=== PATIENT | female | born 1965 | race Caucasian/White ===

== ENCOUNTER 2019-10-02 15:17 | Outpatient (REF) | payer BC, SELFPAY ==
[2019-10-08 09:55] LABS: COVID-19 RT-PCR Result Not Detected (NotDetected)
== END 2019-10-02 15:37 ==
LOC: NCHCN 15:17
PROVIDERS: PCP Nurse Practitioner Family; Visit Provider Physician Assistant
DX: Z20.828 Contact with and (suspected) exposure to other viral communicable diseases (principal); R05 Cough
CPT/HCPCS: U0003

== ENCOUNTER 2020-05-14 19:59 | Outpatient (REF) | payer BC, SELFPAY ==
[2020-05-14 19:38] LABS: Anion Gap 5.5 mmol/L (3-11); BUN 18 mg/dL (7-18); CO2 30.5 mmol/L (21.0-32.0); CREATININE 0.87 mg/dL (0.55-1.02); Calcium 8.8 mg/dL (8.5-10.1); Calculated LDL 163 mg/dL (<100); Chloride 104 mmol/L (98-107); Cholesterol 231 mg/dL (<200); Glucose 99 mg/dL (74-106); HDL Cholesterol 49 mg/dL (40-60); Potassium 4.1 mmol/L (3.5-5.1); Sodium 140 mmol/L (136-145); Triglyceride 96 mg/dL (<150)
== END 2020-05-14 20:19 ==
LOC: NCHCN 19:59
PROVIDERS: PCP Nurse Practitioner Family; Visit Provider Physician Assistant
DX: E78.5 Hyperlipidemia, unspecified (principal)
CPT/HCPCS: 80048; 80061

== ENCOUNTER 2021-05-14 15:08 | Outpatient (REF) | payer BC, SELFPAY ==
[2021-05-14 15:23] LABS: HCT 43.5 % (36.0-46.0); HGB 14.2 g/dL (11.2-15.7); MCH 28.3 pg (27.0-33.0); MCHC 32.6 % (32.0-36.0); MCV 86.7 fL (80-95); MPV 11.5 fL (8.0-11.0); Platelet Count 161 10^3/uL (130-400); RBC 5.02 10^6/uL (3.93-5.22); RDW-SD 40.8 fL; WBC 6.04 10^3/uL (4.4-10.8)
[2021-05-14 16:26] LABS: Anion Gap 7.4 mmol/L (3-11); BUN 19 mg/dL (7-18); CO2 28.6 mmol/L (21.0-32.0); CREATININE 0.8 mg/dL (0.55-1.02); Calculated LDL 150 mg/dL (<100); Chloride 107 mmol/L (98-107); Cholesterol 221 mg/dL (<200); Glucose 108 mg/dL (74-106); HDL Cholesterol 50 mg/dL (40-60); Potassium 4.3 mmol/L (3.5-5.1); Sodium 143 mmol/L (136-145); Triglyceride 106 mg/dL (<150); Vitamin B12 483 pg/mL (193-986)
[2021-05-14 16:51] LABS: FREE T4 0.93 ng/dL (0.76-1.46)
== END 2021-05-14 15:09 | disposition home or self-care (01) ==
LOC: NCHCN 15:08
PROVIDERS: PCP Nurse Practitioner Family; Visit Provider Physician Assistant
DX: G60.9 Hereditary and idiopathic neuropathy, unspecified (principal); E78.5 Hyperlipidemia, unspecified
CPT/HCPCS: 80048; 80061; 85027; 82607; 84439

== ENCOUNTER 2022-04-18 14:47 | Emergency (ER) | payer BC, SELFPAY ==
[2022-04-18 15:04] VITALS: BP 132/69; PULSE 86; RESP 18; TEMP 36.7; O2SAT 99
--- NOTE | 2022-04-18 16:30 | DI.RAD_ITS ---
Exam(s) XR KNEE RT 4V+ EXAM: XR KNEE RT 4V+ CLINICAL HISTORY: twist injury, prior surgery. TECHNIQUE: 2D digital imaging was performed. COMPARISON: No exams were available for comparison FINDINGS: Four views: No evidence of acute fracture or joint effusion. There are significant tricompartmental osteoarthrit ic degenerative changes evident. Bone density normal. No osseous lesions. IMPRESSION: Tricompartmental degenerative changes. No fractures nor obvious joint effusion. DATA REPOSITORY: RADIATION DOSE DELIVERED:
--- NOTE | 2022-04-18 16:48 | W.ED.GENAD ---
Discharge Plan Disposition Patient Disposition: HOME Condition: Stable Discharge Details Clinical Impression: Knee pain, right Primary Care Provider: Dylon Chanel ED Provider: Lukasz Mckinley Home Meds and New Rx's Prescriptions: Continued ascorbic acid (vitamin C) 500 mg tablet 500 mg PO DAILY famotidine [Pepcid] 20 mg tablet 20 mg PO DAILY multivitamin Tablet 1 tab PO DAILY Probiotic Acidophilus 1.5 mg (250 million cell) capsule 100 mmu cells PO DAILY cholecalciferol (vitamin D3) 75 mcg (3,000 unit) tablet 75 mcg PO DAILY acetaminophen [Acetaminophen Extra Strength] 500 mg Tablet 1,000 mg PO QID PRN Discharge Instructions Instructions: Knee Pain (ED) Additional Instructions: X-ray is unremarkable. Rest, elevate, cool compresses every 2 hours for 20 minutes. Wear Deandre wrap and use crutches as needed, advance activity as tolerated. [id number] Tylenol as directed. Please watch for new or worsening symptoms and return to the ER for any concerns. Please contact the [facility] tomorrow to discuss your new knee injury and set up outpatient reevaluation. Medical Decision Making This is a 56-year-old female who reports chronic knee arthritis, [id number], history of meniscus repair, lateral release, presents after stepping awkwardly twisting her right knee today but no fall to the ground. Denies other injury. Plan is to obtain x-ray and reassess. X-ray unremarkable. Discussed x-ray with patient. Knee is stable, I do not believe that a knee immobilizer or hinged brace is necessary. Patient already has crutches. We will apply Deandre wrap. Patient declines any additional analgesia other than Tylenol. She is followed by the [facility] for her chronic knee issues and will call them tomorrow. Standard discharge and return precautions were provided. Patient understands, is agreeable to this plan, and has no additional questions or concerns upon discharge. This documentation was generated using Yapation system, please disregard any oddities of phrase or misspellings. Medical Records Medical records reviewed: Yes I reviewed the patient's medical records. Imaging Data Radiologic Study: Attestation: I personally reviewed and interpreted this imaging study as follows: Imaging: X-Ray Radiologist's impression: PROCEDURE INFORMATION: Exam: XR Right Knee Exam date and time: 04/18/2022 4:53 PM Age: 56 years old Clinical indication: Other: Twist injury; Prior surgery; Surgery date: 6+ months TECHNIQUE: Imaging protocol: Radiologic exam of the Right knee. Views: 4 or more views. COMPARISON: No relevant prior studies available. FINDINGS: Bones/joints: Moderate degenerative changes noted. No acute fracture or dislocation Soft tissues: Normal. IMPRESSION: No acute findings. HPI General Mode of arrival: ambulatory. Date/Time Provider Initiated Documentation: 04/18/22 15:32. Limitations to Documentation: no limitations. Information obtained by: patient. History of Present Illness 56 year old F presents to the emergency department with the chief complaint of R knee injury, described as moderate, with intensity rated at 7. Quality is described as aching, and is localized to the right and lower extremity. Patient reports no radiation. Patient started experiencing this hour(s) (8) and it has been other (Improving). Immobilization improves symptom(s), Movement worsens symptoms . Patient notes no other symptoms.. Patient did receive the following treatments prior to arrival, other (Tylenol) Related Data Home Medications Medication Instructions Recorded Confirmed Lactobacillus acidophilus 1.5 mg 100 mmu cells PO DAILY 07/24/21 04/18/22 (250 million cell) capsule (Probiotic Acidophilus) ascorbic acid (vitamin C) 500 mg 500 mg PO DAILY 07/24/21 04/18/22 tablet cholecalciferol (vitamin D3) 75 75 mcg PO DAILY 07/24/21 04/18/22 mcg (3,000 unit) tablet famotidine 20 mg tablet (Pepcid) 20 mg PO DAILY 07/24/21 04/18/22 multivitamin 1 tab PO DAILY 07/24/21 04/18/22 acetaminophen 500 mg tablet 1,000 mg PO QID PRN 04/18/22 04/18/22 (Acetaminophen Extra Strength) Allergies Allergy/AdvReac Type Severity Reaction Status Date / Time codeine Allergy Intermediate Skin Rash Unverified 09/17/21 15:18 ibuprofen Allergy Intermediate RASH Unverified 09/17/21 15:18 Penicillins Allergy Intermediate Unverified 09/17/21 15:18 shellfish derived Allergy Intermediate HIVES Unverified 09/17/21 15:18 Estrogens Allergy Unverified 09/17/21 15:18 epinephrine AdvReac Unverified 09/17/21 15:18 General Stated Complaint: Orthopedic IBIS: 4 Review of Systems Constitutional Constitutional: Denies weakness Musculoskeletal Musculoskeletal: Denies deformity, Reports arthralgias, Denies numbness, Reports stiffness and Denies tingling Integumentary/Breasts Skin/Breast: Denies rash Neurologic Neurologic: Denies numbness, Denies tingling and Denies weakness PFSH All Active Problems (Updated 04/18/22 @ 17:29 by REGINALD Taylor) Knee pain, right (Acute) Stapedial myoclonus (Acute) Sensorineural hearing loss of both ears (Acute) Medical History Abnormal auditory perception Dry eye syndrome Fatigue FHx: breast cancer H/O concussion Hyperlipidemia Leg edema Osteoarthritis of knees, bilateral Vaginal dryness Surgical History Appendectomy Cholecystectomy Colonoscopy - MAC 09/13/13; NEG KNEE SURGERY RIGHT X 2 LEFT X 1 Vaginal hysterectomy 2001 PARTIAL HYSTERECTOMY; 2004 BOTH OVARIES REMOVED Family History Mother Essential hypertension Personal history of malignant neoplasm Breast Hyperlipidemia Father Alcohol abuse Personal history of malignant neoplasm Colon Sister Heart disease VALVE Asthma Brother Essential hypertension Hyperlipidemia Grandfather Heart disease Grandfather Mental disorder DEMENTIA Grandmother Multiple sclerosis Grandmother Personal history of malignant neoplasm COLON Mental disorder ALZHEIMERS Son No problems noted. Son No problems noted. 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 Pets and animals: Yes Pets and animals: cat(s) Do you feel safe at home: Yes Do you feel safe in your relationship?: Yes Exam Const General: cooperative, healthy appearing, comfortable and no acute distress Orientation: alert and awake HENNJ Head: normal to inspection, normocephalic and atraumatic Eyes General: appearance normal, both eyes and all related structures Conjunctivae: conjunctivae normal Neck Neck: normal visual inspection, trachea midline and supple Resp Effort & Inspection: normal respiratory effort and able to speak in complete sentences Cardio Rate: regular rate Rhythm: regular rhythm Skin General skin exam: no rashes or lesions noted Neuro General: patient alert, patient awake, moves all extremities and no focal motor deficits Cognition: normal cognition Speech: speech normal Gait: antalgic and gait assisted Method: crutches Sensory Exam: no sensory deficits noted Extrem General: capillary refill normal Other: Right lower extremity knee with diffuse mild anterior swelling, tenderness across the anterior and lateral aspect. Full extension, limited flexion secondary to discomfort. There is no warmth, erythema, ecchymosis. Hip, thigh, calf, ankle, foot unremarkable. Negative Homans' sign. Normal pedal pulse. Negative anterior draw sign. Slightly increased discomfort with both varus and valgus stress but no laxity. Psych Appearance: grossly normal Mental Status: mental status grossly normal Course Vital Signs Vital signs: Vital Signs Temperature 36.7 C 04/18/22 15:04 Pulse 86 04/18/22 15:04 Respiratory Rate 18 04/18/22 15:04 Blood Pressure 132/69 04/18/22 15:04 Pulse Oximetry 99 04/18/22 15:04 Temperature 36.7 C 04/18/22 15:04 Temperature Source Oral 04/18/22 15:04 Pulse 86 04/18/22 15:04 Respiratory Rate 18 04/18/22 15:04 Respiratory Effort Non-Labored 04/18/22 15:11 Blood Pressure 132/69 04/18/22 15:04 Blood Pressure Position Sitting 04/18/22 15:04 Pulse Oximetry 99 04/18/22 15:04 Oxygen Delivery Method Room Air 04/18/22 15:04 Oxygen Flow Rate 0 04/18/22 15:04 Pain Level 10 04/18/22 15:04 PAWSS Have you Been Recently Intoxicated or Drunk Within the Last 30 days?: No Have you Ever Experienced Previous Episodes of Alcohol Withdrawal?: No Have you ever Experienced Withdrawal Seizures?: No Have you ever Experienced Delirium Tremens(DT)s?: No Have you ever undergone Alcohol Rehabilitation Treatment (i.e, inpt ot outpatient treatment programs)?: No Have you ever Experienced Blackouts?: No Have you ever Combined Alcohol with other Downers within the last 90 days?: No Have you ever Combined Alcohol with any other Substance of Abuse during the last 90 days?: No Positive Blood Alcohol level on Presentation? [PCS.BAL]: No Evidence of Increased Autonomic Activity (i.e. HR>120, tremor, sweating, agitation, nausea)?: No Result: 0
--- NOTE | 2022-04-18 17:09 | DI.VRAD_ITS ---
PROCEDURE INFORMATION: Exam: XR Right Knee Exam date and time: 04/18/2022 4:53 PM Age: 56 years old Clinical indication: Other: Twist injury; Prior surgery; Surgery date: 6+ months TECHNIQUE: Imaging protocol: Radiologic exam of the Right knee. Views: 4 or more views. COMPARISON: No relevant prior studies available. FINDINGS: Bones/joints: Moderate degenerative changes noted. No acute fracture or dislocation Soft tissues: Normal. IMPRESSION: No acute findings. Dictated and Authenticated by: Cody Donovan MD. Ordering:CANDE Lal MD
== END 2022-04-18 17:42 | disposition home or self-care (01) ==
PROVIDERS: Emergency Provider Physician Assistant; PCP Physician Assistant
DX: G89.11 Acute pain due to trauma (principal); M25.561 Pain in right knee; X50.1XXA Overexertion from prolonged static or awkward postures, initial encounter
CPT/HCPCS: 99283; 73564; 99282

== ENCOUNTER 2022-06-16 17:06 | Outpatient (REF) | payer BC, SELFPAY ==
[2022-06-16 20:07] LABS: COVID-19 PCR Negative (Negative); Influenza A PCR Negative (Negative); Influenza B PCR Negative (Negative); RSV PCR Negative (Negative)
[2022-06-16 20:08] LABS: Source Nasopharynx
== END 2022-06-16 17:07 | disposition home or self-care (01) ==
LOC: NCHCN 17:06
PROVIDERS: PCP Physician Assistant; Visit Provider Physician Assistant
DX: J06.9 Acute upper respiratory infection, unspecified (principal); Z20.822 Contact with and (suspected) exposure to COVID-19
CPT/HCPCS: 87637

== ENCOUNTER 2022-07-02 15:55 | Outpatient (REF) | payer BC, SELFPAY ==
[2022-07-05 12:01] LABS: Lyme Ab w Rflx to Lyme Confirm Negative (Negative)
[2022-07-05 18:49] LABS: Anaplasma phagocytophilum Negative (Negative); B. miyamotoi PCR Negative (Negative); Babesia divergens/MO-1 Negative (Negative); Babesia duncani Negative (Negative); Babesia microti Negative (Negative); Ehrlichia chaffeensis Negative (Negative); Ehrlichia ewingii/canis Negative (Negative); Ehrlichia muris eauclairensis Negative (Negative)
== END 2022-07-02 15:56 | disposition home or self-care (01) ==
LOC: NCHCN 15:55
PROVIDERS: PCP Physician Assistant; Visit Provider Physician Assistant
DX: A93.8 Other specified arthropod-borne viral fevers (principal)
CPT/HCPCS: 87798; 86618

== ENCOUNTER 2022-10-29 15:11 | Outpatient (REF) | payer BC, SELFPAY ==
[2022-10-29 16:15] LABS: HCT 44.5 % (36.0-46.0); HGB 14.5 g/dL (11.2-15.7); MCHC 32.6 % (32.0-36.0); MCV 86 fL (80-95); MPV 11.2 fL (8.0-11.0); Platelet Count 187 10^3/uL (130-400); RBC 5.17 10^6/uL (3.93-5.22); RDW 12.9 % (11.7-14.6); RDW-SD 40.5 fL; WBC 6.25 10^3/uL (4.4-10.8)
[2022-10-29 16:35] LABS: Anion Gap 7.3 mmol/L (3-11); BUN 24 mg/dL (7-18); CO2 29.7 mmol/L (21.0-32.0); CREATININE 0.9 mg/dL (0.55-1.02); Calcium 9.4 mg/dL (8.5-10.1); Chloride 105 mmol/L (98-107); Glucose 96 mg/dL (74-106); Potassium 4.3 mmol/L (3.5-5.1); Sodium 142 mmol/L (136-145)
== END 2022-10-29 15:12 | disposition home or self-care (01) ==
LOC: NCHCN 15:11
PROVIDERS: PCP Physician Assistant; Visit Provider Physician Assistant
DX: Z01.818 Encounter for other preprocedural examination (principal); Z01.812 Encounter for preprocedural laboratory examination
CPT/HCPCS: 80048; 85027

== ENCOUNTER 2023-07-15 08:34 | Outpatient (REF) | payer BC, SELFPAY ==
[2023-07-15 14:49] LABS: HGB 14.4 g/dL (11.2-15.7); MCH 27.3 pg (27.0-33.0); MCV 85 fL (80-95); MPV 10.7 fL (8.0-11.0); Platelet Count 177 10^3/uL (130-400); RBC 5.28 10^6/uL (3.93-5.22); RDW 13.2 % (11.7-14.6); RDW-SD 40.8 fL; WBC 5.08 10^3/uL (4.4-10.8)
[2023-07-15 15:25] LABS: Anion Gap 4.3 mmol/L (3-11); BUN 18 mg/dL (7-18); CO2 30.7 mmol/L (21.0-32.0); Calcium 9.4 mg/dL (8.5-10.1); Calculated LDL 202 mg/dL (<100); Chloride 106 mmol/L (98-107); Cholesterol 286 mg/dL (<200); Glucose 112 mg/dL (74-106); HDL Cholesterol 57 mg/dL (40-60); Potassium 4.5 mmol/L (3.5-5.1); Sodium 141 mmol/L (136-145); Triglyceride 138 mg/dL (<150)
== END 2023-07-15 08:35 | disposition home or self-care (01) ==
LOC: NCHCN 08:34
PROVIDERS: PCP Physician Assistant; Visit Provider Physician Assistant
DX: Z00.00 Encounter for general adult medical examination without abnormal findings (principal); E78.5 Hyperlipidemia, unspecified; R73.09 Other abnormal glucose
CPT/HCPCS: 80048; 80061; 85027

== ENCOUNTER 2023-09-30 08:12 | Day surgery (SDC) | payer BC, SELFPAY ==
--- NOTE | 2023-09-29 11:42 | COLE_ITS ---
Date of service: 09/30/23 Time of Service: 09:46 Colonoscopy Report Date of procedure: 09/30/23 Pre-op diagnosis general: family history/constipation Post-op diagnosis procedure note: same (normal colon ) Surgeon: Maia De Anda Anesthesia Type: General:No Airway Estimated blood loss (mL): 0 Pathology: none sent Complications: None Disposition: same day Prep: Miralax/Dulcolax Retraction Time: 10 Procedure Description: After informed consent was obtained the patient was taken to the procedure room and placed in a left decubitous position. Monitors were applied and a time out was done. The patients name, date of , procedure, allergies to medications and metal in their body was reviewed. The patient was then sedated. Once sedated and comfortable a rectal exam was done. External exam was normal. Internal exam revealed a normal sphincter tone and no palpable masses. The scope was then introduced and retrofelexed. No internal hemorrhoids were identified. The scope was then advanced to the cecum without difficulty. The TI and appendiceal orifice were identified. The scope was then slowly retracted over 10 minutes back into the rectum. There are no polyps, AVMs, or diverticula visualized today. Mucosa is pink and healthy with a normal vascular pattern.. The scope was removed and the patient was woken up and taken back to Same day surgery in stable condition. The patient tolerated the procedure well and there were no immediate complications. Follow up: The patient should follow up in 5 years unless they develop changes in bowel habits or other new gastrointestinal complaints. [place] Bowel Prep [place] Bowel Prep Right Colon: 3 Left Colon: 3 Transverse Colon: 3 Total Score: 9
--- NOTE | 2023-09-29 11:43 | W.PM.HP.N ---
Date of service: 09/30/23 Time of Service: 09:07 Assessment and Plan Assessment and plan (1) Family history of colon cancer in father: Status: Acute Assessment and plan: Plan: Colonoscopy w/ general & natural airway. Informed consent is obtained for the procedural (explained in simple layman's terms that?the pt and/or family could understand) explaining risks vs benefits and alternatives to the procedure and consequences if we do not do the procedure and need/rational for the procedure. Risks include but are not limited to: bleeding, infection, perforation of colon.? This would necessitate emergency surgery to repair the damage w/ possible ostomy; and other associated complications w/ the required surgery. ? Also complications of anesthesia including aspiration, MD/CVA/, inability to complete the procedure. I discussed with the?patient would they could expect during the procedure, post procedure and recovery time and risks.? The patient understands that they need to have a ride home after the procedure.? Generally Colonoscopy does not require antibiotics prophylaxis, (2) Hyperlipidemia: (3) Peripheral neuropathy: Status: Acute (4) Osteoarthritis: Status: Chronic (5) Abdominal bloating: Status: Acute History of Present Illness Narrative: Patient is here today for colonoscopy for family Hx.??? They completed a bowel prep with just a clear yellow residual effluent.? They not having any chest pain or shortness of breath, currently.? They are not experiencing any fever or chills.? They deny any productive cough or upper respiratory tract infection signs or symptoms.? They are mild RLQ pain, but no nausea and vomiting.? They have not had any changes in medications, past medical history or past surgical history since previously being seen in the office. They have not had any accidents or have been in the ER since the clinic pre-operative evaluation. ??I reviewed the procedure with the patient today, including risks and benefits of the procedure, and what they could expect at home for recovery.? All questions are answered to the patient?s satisfaction today, and they are stable to proceed with the proposed procedure. RN:Pt here for 5 yr colonoscopy, last one was [address] Velez, normal report, shows hemorrhoids. Pt reports father was diagnosed at age 53 and passed. Pt seen at the request of PCP regarding colon cancer screening. Pt has had colon cancer screening before.? ? They deny any pain or difficulty with bowel movements, or rectal bleeding.? There is family history of any colon cancer.? Pt has not had any unexplained weight loss.? Their appetite is good.? ?They deny heart, lung, or kidney problems. They are not having heartburn or indigestion. They have not had any prior colo-rectal surgery.? The patient has had a prior FERMIN.? They deny any problems with anesthesia in the past. She has a slow sytem. Someday are regular/somedays are strianing/someday are almost diarrhea. last colo 2018 w/ [facility] per pt . father had crc age 53 and in a few months pshx ruptured appendix mult laparoscopies for endometrisosis [facility] did remove ovaries. age 39. Did do HRT therapy for only 3 months- She had a TIA and was thought to be from estrogens. This medication was stopped and no further workup done. lap kandy. also laparoscpies to remove scar tissues from previous ruptured appy. -She was told she has lots of length and slow system. her bowels are 50/50 for constipation/ diarrhea. knee replacement- 11/06 pt notes decrease in amount of activity she is a been able to do since knee replacement. cruciferous vegetable goes more gas and pain. soy bothers her. She has never tried doing the full diet. Patient was given information about this. Anesthesia: general (without airway) Previous surgical intolerances: No Previous surgical complications: No Pulmonary risk factors: Planned procedure: Yes Sleep apnea risks: No COPD/Asthma/Smoker: no Can climb one flight of stairs (12-13 steps) in less than 30 seconds without stopping and without symptoms: Yes The surgery proposed for this patient is: low risk Active cardiac conditions: none Active risk factors: none ASA (acetylsalicylic acid): not used Beta blockers: not used Kidneys: no concerns DM:no MD/CVA- no ? Review of Systems All systems reviewed & are unremarkable except as noted in HPI and below PFSH All Active Problems Flatulence (Acute) Abdominal bloating (Acute) Family history of colon cancer in father (Acute) Osteoarthritis (Chronic) Peripheral neuropathy (Acute) Stapedial myoclonus (Acute) Sensorineural hearing loss of both ears (Acute) Medical History Hx of transient ischemic attack (TIA) Pt. states it was from HRT. 2012 Post covid-19 condition, unspecified Reactive airways dysfunction syndrome pt denies Vaginal dryness Fatigue Abnormal auditory perception Dry eye syndrome FHx: breast cancer Hyperlipidemia Osteoarthritis of knees, bilateral Leg edema H/O concussion Surgical History History of total left knee replacement (TKR) (~11/08/22) KNEE SURGERY (~10/2022) RIGHT X 2 LEFT X 1 Vaginal hysterectomy 2001 PARTIAL HYSTERECTOMY; 2004 BOTH OVARIES REMOVED Colonoscopy - MAC 09/13/13; NEG Cholecystectomy Appendectomy Family History Mother Essential hypertension Personal history of malignant neoplasm Breast Hyperlipidemia Father Alcohol abuse Personal history of malignant neoplasm Colon Sister Heart disease VALVE Asthma Brother Essential hypertension Hyperlipidemia Grandfather Heart disease Grandfather Mental disorder DEMENTIA Grandmother Multiple sclerosis Grandmother Personal history of malignant neoplasm COLON Mental disorder ALZHEIMERS Son No problems noted. Son No problems noted. 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 [employer] Pets and animals: Yes Pets and animals: cat(s) Do you feel safe at home: Yes Do you feel safe in your relationship?: Yes Meds Allergies and Home Medications Allergies Allergy/AdvReac Type Severity Reaction Status Date / Time Estrogens Allergy Severe TIA Verified 09/30/23 08:34 codeine Allergy Intermediate Skin Rash Verified 09/30/23 08:34 ibuprofen Allergy Intermediate RASH Verified 09/30/23 08:34 Penicillins Allergy Intermediate Skin Rash Verified 09/30/23 08:34 shellfish derived Allergy Intermediate HIVES Verified 09/30/23 08:34 epinephrine AdvReac Intermediate sweats, Verified 09/30/23 08:34 heart racing, vomiting, diarrhea Home Medications Medication Instructions Recorded Confirmed Type Lactobacillus acidophilus 250 100 mmu cells PO DAILY 07/24/21 09/30/23 History million cell capsule (Probiotic Acidophilus) ascorbic acid (vitamin C) 500 mg 500 mg PO DAILY 07/24/21 09/30/23 History tablet cholecalciferol (vitamin D3) 75 75 mcg PO DAILY 07/24/21 09/30/23 History mcg (3,000 unit) tablet famotidine 20 mg tablet (Pepcid) 20 mg PO DAILY 07/24/21 09/30/23 History multivitamin 1 tab PO DAILY 07/24/21 09/30/23 History acetaminophen 500 mg tablet 1,000 mg PO QID PRN 04/18/22 09/30/23 History (Acetaminophen Extra Strength) vitamin A 2,400 mcg capsule 2,400 mcg PO DAILY 12/20/22 09/30/23 History Exam Narrative Exam Narrative: PHYSICAL EXAM GENERAL APPEARANCE: Alert, healthy appearance, oriented, x 3,? in no acute distress HYDRATION: Well hydrated HEAD, EYES, EARS, NECK, THROAT: Head is normocephalic, pupils equal, round, reactive to light and accommodation, ocular movement intact, sclera clear and no jaundice. ?Dentition intact. LUNGS: normal respiration/normal chest excursion. ?Clear to auscultation bilaterally. ?No wheeze. ?HEART: Regular rate and rhythm. no murmurs ABDOMEN: soft and non-tender to palpation.? Normal bowel sounds.? Time Spent Time spent with Patient: <40 minutes Time was spent: preparing to see the patient(eg.review tests), obtaining and/or reviewing separately otained hiistory, ordering medications,tests, procedures, referring, communicating with other health medicare contact specialist, indepentently interpreting results, counseling the patient and care coordination
--- NOTE | 2023-09-29 11:46 | PDOC.DSDIS_ITS ---
Date of service: 09/30/23 Time of Service: 09:48 Discharge Plan Disposition Patient Disposition: Home Condition: Good Discharge Details Reason For Visit: colon scope Attending Provider: Maia De Anda Primary Care Provider: Dylon Chanel Home Meds and New Rx's Prescriptions: Continued ascorbic acid (vitamin C) 500 mg tablet 500 mg PO DAILY famotidine [Pepcid] 20 mg tablet 20 mg PO DAILY multivitamin Tablet 1 tab PO DAILY Probiotic Acidophilus 1.5 mg (250 million cell) capsule 100 mmu cells PO DAILY cholecalciferol (vitamin D3) 75 mcg (3,000 unit) tablet 75 mcg PO DAILY vitamin A 2,400 mcg capsule 2,400 mcg PO DAILY acetaminophen [Acetaminophen Extra Strength] 500 mg Tablet 1,000 mg PO QID PRN Discontinued polyethylene glycol 3350 17 gram/dose powder 238 g PO ONCE Qty: 238 0RF Rx Instructions: take per colonoscopy instructions bisacodyl [Dulcolax (bisacodyl)] 5 mg tablet,delayed release (DR/EC) 5 mg PO ONCE Qty: 4 0RF Rx Instructions: take per colonoscopy instructions Discharge Instructions Additional Instructions: [facility] Colonoscopy Post- Op Instructions Instructions for Everyone who is given Anesthesia: For your safety, please do the following for the next twenty-four (24) hours: *Do Not operate a motor vehicle (car, truck, motorcycle, etc.) *Do Not drink alcoholic beverages or use any recreational drugs for the first 24 hours or while taking pain medications. The medications in your body may have a reaction that can be dangerous. *Do Not make any important decisions or sign any important papers. Findings: Normal Follow up: 5 yrs 1. No lifting over 20 pounds or strenuous activity for the first 24 hours after your procedure. After 24 hours there are no restrictions on your activity but you may feel fatigued for a few days. 2. After you arrive home you may have a light meal and return to your normal diet as you can tolerate it without feeling sick to your stomach. 3. You may have a bloated, gaseous feeling in your belly (abdomen) after a colonoscopy. Passing gas and belching will help. Walking or lying down on your left side with your knees flexed may relieve the discomfort. Call the office at [phone] (Office) or [phone] (Hospital) right away if you notice any of the following: a.Vomiting of blood or ?coffee ground stools?. b.Rectal bleeding 1Tbsp, blood clots or continuous bleeding. c.Severe belly (abdominal) pain. d.A hard distended belly (abdomen) and an inability to pass gas. 4. Please don?t expect to have a normal BM (bowel movement) for 2-3 days after your procedure. 5. If there are questions regarding the findings of your procedure, please contact your doctor 6. If you are unable to contact your doctor with a problem, contact the hospital at [phone]. 7. Continue all your regular medications unless directed otherwise. I understand the above instructions and have no questions. Signature of Patient or Adult Escort Name of Responsible Adult Escort Signature of Nurse Date/Time Activity:: see above Diet:: see above Discharge Orders Discharge Orders: Discharge Order (Routine); Ordered 09/30/23 Ordered By: Maia De Anda DS: Diagnosis Discharge Diagnosis (1) Family history of colon cancer in father: Status: Acute Asessment and Plan: The patient is seen and examined after their colonoscopy.? The patient has been able to pass gas.? They are not having abdominal pain.? They have been able to tolerate liquids and a snack.? They do not have any nausea or vomiting.? They are not having any chest pain or shortness of breath.??? They are not having any rectal bleeding. Their vital signs have been stable-see nursing notes. We discussed findings during their colonoscopy, and any biopsies that were done/polyps that were removed. The patient will be sent a letter with any biopsy results, and when to repeat the colonoscopy.-see discharge instructions. Patient was given explicit instructions to follow-up regarding colonoscopy-refer to discharge instructions.? We reviewed resumption of medications. Patient verbalized understanding and discharged in stable and satisfactory condition- See nursing notes. (2) Hyperlipidemia: (3) Peripheral neuropathy: Status: Acute (4) Osteoarthritis: Status: Chronic (5) Abdominal bloating: Status: Acute
[2023-09-30 08:20] VITALS: BP 136/74; PULSE 102; RESP 22; TEMP 36.2; O2SAT 96
[2023-09-30] MEDS: Lactated Ringers 1,000 ML 125 ML IV (08:51)
[2023-09-30] MEDS: Ondansetron 4 MG/2 ML VIAL IVP (08:52)
[2023-09-30] MEDS: Hyoscyamine 0.125 MG SL/ORAL/CHEW PO (08:52)
--- NOTE | 2023-09-30 09:12 | W.ANESPRE ---
General Info Date of Service Date Performed: 09/30/23 Height: 5 ft 11.75 in Weight: 83 kg Body Mass Index (BMI): 25.0 Surgical Procedure: Operation Date: 09/30/23 09:20 Proposed Procedure Side Surgeon p Colonoscopy Maia De Anda DO Actual Procedure Side Surgeon p Colonoscopy Not Applicable Maia De Anda DO Pre-Op Diagnosis Post-Op Diagnosis colon scope Meds Allergies and Home Medications Allergies Allergy/AdvReac Type Severity Reaction Status Date / Time Estrogens Allergy Severe TIA Verified 09/30/23 08:34 codeine Allergy Intermediate Skin Rash Verified 09/30/23 08:34 ibuprofen Allergy Intermediate RASH Verified 09/30/23 08:34 Penicillins Allergy Intermediate Skin Rash Verified 09/30/23 08:34 shellfish derived Allergy Intermediate HIVES Verified 09/30/23 08:34 epinephrine AdvReac Intermediate sweats, Verified 09/30/23 08:34 heart racing, vomiting, diarrhea Home Medication Medication Instructions Recorded Lactobacillus acidophilus 250 100 mmu cells PO DAILY 07/24/21 million cell capsule (Probiotic Acidophilus) ascorbic acid (vitamin C) 500 mg 500 mg PO DAILY 07/24/21 tablet cholecalciferol (vitamin D3) 75 75 mcg PO DAILY 07/24/21 mcg (3,000 unit) tablet famotidine 20 mg tablet (Pepcid) 20 mg PO DAILY 07/24/21 multivitamin 1 tab PO DAILY 07/24/21 acetaminophen 500 mg tablet 1,000 mg PO QID PRN 04/18/22 (Acetaminophen Extra Strength) vitamin A 2,400 mcg capsule 2,400 mcg PO DAILY 12/20/22 Current Visit Medications: Current Medications Generic Name Dose Route Start Last Admin Trade Name Marva PRN Reason Stop Dose Admin Hyoscyamine Sulfate 0.125 mg 09/30/23 11:40 Hyoscyamine 0.125 Mg Sl/Oral/Chew SL 10/30/23 11:39 DIRECTED PRN Hyoscyamine Sulfate 0.125 mg 09/30/23 06:00 09/30/23 08:52 Hyoscyamine 0.125 Mg Sl/Oral/Chew PO 09/30/23 16:00 0.125 mg PREOP SYDNEY Administration Ringer's Solution 1,000 mls @ 125 mls/hr 09/30/23 06:00 09/30/23 08:51 IV 10/29/23 23:59 125 mls/hr INFUSION SYDNEY Administration IV Miscellaneous Supplies 1 each 09/30/23 06:00 Iv Access IV 10/29/23 23:59 DIRECTED SYDNEY Ondansetron HCl 4 mg 09/30/23 11:40 Ondansetron 4 Mg/2 Ml Vial IVP 10/30/23 11:39 Q4H PRN PRN Nausea / Vomiting Ondansetron HCl 4 mg 09/30/23 06:00 09/30/23 08:52 Ondansetron 4 Mg/2 Ml Vial IVP 09/30/23 16:00 4 mg PREOP SYDNEY Administration Sodium Chloride 0 ml 09/30/23 06:00 Normal Saline Flush 10 Ml Syr IV 10/29/23 23:59 PRN PRN Sodium Chloride 0 ml 09/30/23 06:00 Normal Saline 10 Ml Vial IJ 10/29/23 23:59 DIRECTED PRN Sterile Water 0 ml 09/30/23 06:00 Water,Injection,Sterile 10 Ml Vial IJ 10/29/23 23:59 DIRECTED PRN PFSH Active Problems Active Problems: Problem Status Onset Code Flatulence R14.3 Abdominal bloating R14.0 Family history of colon cancer in father Z80.0 Osteoarthritis M19.90 Peripheral neuropathy G62.9 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 states it was from HRT. 2011 Post covid-19 condition, unspecified Reactive airways dysfunction syndrome pt denies Vaginal dryness Fatigue Abnormal auditory perception Dry eye syndrome FHx: breast cancer Hyperlipidemia Osteoarthritis of knees, bilateral Leg edema H/O concussion Surgical History Surgical History History of total left knee replacement (TKR) (~11/08/22) KNEE SURGERY (~10/2022) RIGHT X 2 LEFT X 1 Vaginal hysterectomy 2001 PARTIAL HYSTERECTOMY; 2004 BOTH OVARIES REMOVED Colonoscopy - MAC 09/13/13; NEG Cholecystectomy Appendectomy Tobacco Smoking/Tobacco Use Status: Former Tobacco Use Alcohol Alcohol Intake: current Alcohol intake frequency: a few times a month Alcohol type: beer Substance Use Substance use: Never Substance use type: does not use Vital Signs and Lab Results Vital Signs Most Recent Vital Signs in EMR: Most Recent Vital Signs Temp Pulse Resp BP Pulse Ox 36.2 C L 102 H 22 136/74 96 09/30/23 08:20 09/30/23 08:20 09/30/23 08:20 09/30/23 08:20 09/30/23 08:20 Lab Results Blood Type / Crossmatch: No Data to Display Complete Blood Count: No Data to Display Complete Metabolic Panel: No Data to Display Liver Function Panel: No Data to Display Coagulation Panel: No Data to Display Cardiac Panel: No Data to Display Arterial Blood Gas: No Data to Display Venous Blood Gas: No Data to Display Pancreas Panel: No Data to Display Thyroid Panel: No Data to Display Infectious Disease: No Data to Display Blood Cultures: No Data to Display Toxicology Panel: No Data to Display Anesthesia Assessment and Plan Anesthesia History Personal History: PONV Family History: No Family History of Anesthesia Complications Exercise Tolerance Exercise Tolerance: Metabolic Equivalents>4 Pertinent Negatives Pertinent Negatives: No Symptoms of GERD Cardiac & Pulmonary Exam Cardiac Exam: Normal S1/S2 Heart Sounds Pulmonary Exam: Clear Bilateral Breath Sounds Implantable Cardiac Device Does patient have a Pacemaker or an ICD?: No Airway Exam Known Difficult Airway: No Mallampati Class: 2 Mouth Opening: Normal (> 3cm) Thyromental Distance: Greater than 3 cm Neck Range of Motion: Full ROM Neck Circumference: Normal Teeth Condition: Normal Dentition ASA Classification ASA Score: ASA 2 Emergency Case?: No NPO Status NPO Status: NPO Clears >2 hours, Solids >8 hours Anesthesia Plan Resuscitation Status: Full Code Anesthesia Technique: General Anesthesia Airway Planned: Natural Airway Monitors Used: Standard Monitors
[2023-09-30 09:13] VITALS: BMI 25.0
[2023-09-30 09:48] VITALS: BP 110/80; PULSE 86; RESP 16; TEMP 36.5; O2SAT 98
--- NOTE | 2023-09-30 09:52 | W.ANESPOSTOP ---
Postoperative Evaluation Date, Time and Location Date Performed: 09/30/23 Time Performed: 09:52 Patient Location: Day Surgery Unit Vital Signs Most Recent Imported Vital Signs: Most Recent Vital Signs Temp Pulse Resp BP Pulse Ox 36.5 C 86 16 110/80 98 09/30/23 09:48 09/30/23 09:48 09/30/23 09:48 09/30/23 09:48 09/30/23 09:48 Pain Score Most Recent Pain Score: Most Recent Pain Score Pain Level 0 09/30/23 09:48 Assessment Mental Status: Awake (Alert & Oriented to Patient Baseline) Airway and Respiratory Function: Patent airway with normal (patient baseline) respiratory exam Cardiovascular Function: Hemodynamically Stable Hydration Status: Adequately Hydrated Nausea & Vomiting: No Nausea or Vomiting Pain: Pt. Denies Any Pain Peripheral Nerve Block: Patient did not receive a nerve block
[2023-09-30 09:58] VITALS: BP 99/71; PULSE 85; RESP 16; TEMP 36.6; O2SAT 98
== END 2023-09-30 10:32 | disposition home or self-care (01) ==
PROVIDERS: PCP Physician Assistant; Visit Provider Surgery
PROC: 0DJD8ZZ Inspection of Lower Intestinal Tract, Via Natural or Artificial Opening Endoscopic (ICD-10-PCS; CPT 45378; principal; 2023-09-30 09:15)
DX: Z12.11 Encounter for screening for malignant neoplasm of colon (principal); R14.0 Abdominal distension (gaseous); Z80.0 Family history of malignant neoplasm of digestive organs
CPT/HCPCS: 45378; J2001; J2405; J2704; J3490

== ENCOUNTER 2024-07-03 09:22 | Outpatient (REF) | payer BC, SELFPAY ==
[2024-07-03 15:57] LABS: Abs Immature Grans 0.03 10^3/uL (0.0-0.06); Absolute Basophil Count 0.05 10^3/uL (0.0-0.2); Absolute Eosinophil Count 0.14 10^3/uL (0.0-0.7); Absolute Monocyte Count 0.38 10^3/uL (0.1-0.8); Absolute Neutrophil Count 2.89 10^3/uL (1.2-6.7); Eosinophils % 2.8 %; HCT 45.1 % (36.0-46.0); HGB 14.5 g/dL (11.2-15.7); Immature Grans % 0.6 %; Lymphocytes % 31.4 %; MCH 28.1 pg (27.0-33.0); MCHC 32.2 % (32.0-36.0); MCV 87 fL (80-95); MPV 11.6 fL (8.0-11.0); Monocytes % 7.5 %; Neutrophils % 56.7 %; Platelet Count 184 10^3/uL (130-400); RBC 5.16 10^6/uL (3.93-5.22); RDW 13.2 % (11.7-14.6); RDW-SD 42.8 fL; WBC 5.09 10^3/uL (4.4-10.8)
[2024-07-03 16:40] LABS: ALT 42 U/L (14-59); AST 29 U/L (15-37); Albumin 3.9 g/dL (3.4-5.0); Alkaline Phosphatase 93 U/L (46-116); Anion Gap 2.8 mmol/L (3-11); BUN 15 mg/dL (7-18); Bilirubin, Total 0.47 mg/dL (0.2-1.0); CO2 33.2 mmol/L (21.0-32.0); CREATININE 0.8 mg/dL (0.55-1.02); Calculated LDL 171 mg/dL (<100); Chloride 104 mmol/L (98-107); Cholesterol 257 mg/dL (<200); Estimated GFR 84.82 (mL/min/1.73m2); Glucose 89 mg/dL (74-106); HDL Cholesterol 53 mg/dL (40-60); Potassium 4.4 mmol/L (3.5-5.1); Sodium 140 mmol/L (136-145); Triglyceride 166 mg/dL (<150)
[2024-07-03 17:21] LABS: Hemoglobin A1C 5.7 % (<5.7)
[2024-07-03 17:34] LABS: NT-proBNP 33 pg/mL (<300)
== END 2024-07-03 09:23 | disposition home or self-care (01) ==
LOC: NCHCN 09:22
PROVIDERS: PCP Physician Assistant; Visit Provider Physician Assistant
DX: E78.5 Hyperlipidemia, unspecified (principal); R60.9 Edema, unspecified; Z13.1 Encounter for screening for diabetes mellitus
CPT/HCPCS: 80053; 80061; 83036; 83880; 85025